=== PATIENT | female | born 1955 | race Caucasian/White ===

== ENCOUNTER 2017-04-11 10:26 | Day surgery (SDC) | payer OTHER ==
[2017-04-11] MEDS ORDERED: NS 1,000 ML IV ONE (10:35)
[2017-04-11] MEDS ORDERED: FAMOTIDINE 20 MG TAB PO ONE (10:35)
[2017-04-11] MEDS ORDERED: diphenhydrAMINE 25 MG CAP PO ONE (10:35)
[2017-04-11] MEDS ORDERED: DIAZEPAM 5 MG TAB PO ONE (10:35)
[2017-04-11] MEDS ORDERED: ASPIRIN EC 325 MG TAB PO ONE (10:35)
--- NOTE | 2017-04-11 11:13 | CPEKG ---
Heart Rate: 75 RR Interval: 800 P-R Interval: 152 QRSD Interval: 82 QT Interval: 372 QTC Interval: 416 P [place]: 73 QRS [place]: -15 T Wave [place]: 29 EKG Severity - ABNORMAL ECG - EKG Impression: SINUS RHYTHM EKG Impression: BORDERLINE LEFT AXIS DEVIATION EKG Impression: BORDERLINE R WAVE PROGRESSION, ANTERIOR LEADS Electronically Signed By: Carlos Arzate 11-Apr-2017 15:44:01
[2017-04-11 11:47] LABS: % IMMATURE GRANULYOCYTES 0.3 % (0.0-1.1); ABSOLUTE IMMATURE GRANULOCYTES 0.02 10^3/uL (0.00-0.10); ADD DIFF? NO; ADD MORPH? NO; ADD SCAN? NO; ATYPICAL LYMPHOCYTE FLAG 10 (0-99); FRAGMENT RBC FLAG 0 (0-99); HEMATOCRIT 42.9 % (38.0-47.0); HEMOGLOBIN 14.8 g/dL (12.6-16.3); LEFT SHIFT FLG 0 (0-99); LIPEMIA HEMOLYSIS FLAG 90 (0-99); MEAN CELL HEMOGLOBIN 33.7 pg (27.9-34.1); MEAN CELL HEMOGLOBIN CONCENTR. 34.5 g/dL (32.4-36.7); MEAN CELL VOLUME 97.7 fL (81.5-99.8); MEAN PLATELET VOLUME 9.4 fL (8.7-11.7); PLATELET CLUMPS FLAG 0 (0-99); PLATELET COUNT 295 10^3/uL (150-400); RED BLOOD CELL COUNT 4.39 10^6/uL (4.18-5.33)
[2017-04-11 11:54] LABS: INR 1.05 (0.83-1.16); PROTIME(PATIENT) 13.6 SEC (12.0-15.0)
[2017-04-11 12:02] LABS: ANION GAP 15 mEq/L (8-16); CALCIUM 10.3 mg/dL (8.5-10.4); CARBON DIOXIDE 23 mEq/l (22-31); CHLORIDE 104 mEq/L (97-110); CHOLESTEROL 194 mg/dL (140-220); CHOLESTEROL/HDL RATIO 2.49 RATIO (1.00-4.44); CREATININE 0.7 mg/dL (0.6-1.0); GLOMERULAR FILTRATION RATE > 60; GLUCOSE 84 mg/dL (70-100); HIGH DENSITY LIPOPROTEIN 78 mg/dL (40-85); LDL/HDL RATIO 1.32 RATIO (1.00-3.22); LOW DENSITY LIPOPROTEIN 103 mg/dL (80-100); MAGNESIUM 2.1 mg/dL (1.6-2.3); NON-HIGH DENSITY LIPOPROTEIN 116 mg/dL (90-129); SODIUM 142 mEq/L (134-144); TRIGLYCERIDE 69 mg/dL (35-135); VERY LOW DENSITY LIPOPROTEINS 13 mg/dL (8-25)
[2017-04-11] MEDS ORDERED: LIDOCAINE 1% 300 MG/30 ML SDV ONE (12:17)
[2017-04-11] MEDS ORDERED: fentaNYL 100 MCG/2 ML INJ ONE (12:17)
[2017-04-11] MEDS ORDERED: IOPAMIDOL (ISOVUE-370) 150 ML BTL IV ONE (12:18)
[2017-04-11] MEDS ORDERED: MIDAZOLAM 2 MG/2 ML VIAL ONE (12:18)
[2017-04-11] MEDS ORDERED: VERAPAMIL 5 MG/2 ML VIAL ONE (12:18)
[2017-04-11] MEDS ORDERED: HEPARIN 10,000 UNIT/10 ML MDV ONE (12:18)
--- NOTE | 2017-04-11 14:48 | ECHO ---
[id number] + + [address] : : [place] [address] : : [phone] + Adult Echocardiographic Report + -----+ :Name: NIKKO CHATTERJEE MStudy Date: 04/11/2017 01:22 PM : : Hospital Admission Number: [id number] Location : [facility]: :: 1955 Gender: Female Height: 64 in : :Age: 61 yrs Race: WH Weight: 127 lb : :Reason For Study: Eval LV function : : BSA: 1.6 meters2 : + -----+ MMode/2D Measurements \T\ Calculations IVSd: 0.62 cm LVIDd: 4.5 cm FS: 45.8 % Ao root diam: LVPWd: 0.81 cm LVIDs: 2.4 cm EDV(Teich): 3.2 cm 92.5 ml LA dimension: ESV(Teich): 3.0 cm 21.0 ml EF(Teich): 77.3 % LVLd ap4: 7.0 cm SV(MOD-sp4): EDV(MOD-sp4): 36.0 ml 54.0 ml LVLs ap4: 5.7 cm ESV(MOD-sp4): 18.0 ml EF(MOD-sp4): 66.7 % Normal Measurement Values: + + :LVIDd (3.5-5.7cm) IVSd (0.6-1.1cm) LVPWd (0.6-1.1cm) Aortic Root (2.0-3.7cm)Left Atrium (1.5-4.0cm): :LV Vol(d) (76-115ml) LV Vol(s) (29-48ml) Ejec Fraction (50-65%)PV Juan (0.6- 1.2m/s) TV Juan (0.4-1.0m/s) : :MV E Juan (0.8-1.0m/s)MV A Juan (0.3-1.0m/s)LVOT Juan (0.7-1.2m/s) Asc Ao Juan ( 0.9-1.8m/s) : + + Doppler Measurements \T\ Calculations MV E max juan: 58.7 cm/sec Ao V2 max: 86.9 cm/sec MV A max juan: 59.2 cm/sec Ao max P.0 mmHg MV E/A: 0.99 Left Ventricle The left ventricle is normal in size. There is normal left ventricular wall thickness. Left ventricular systolic function is normal. Ejection Fraction = 65-70%. No regional wall motion abnormalities noted. Right Ventricle The right ventricle is normal in size and function. Atria The left atrial size is normal. Right atrial size is normal. The interatrial septum is intact with no evidence for an atrial septal defect. Mitral Valve Calcified mitral apparatus. Borderline posterior mitral leaflet prolapse. There is no mitral valve stenosis. There is trace mitral regurgitation. Tricuspid Valve Normal tricuspid valve. There is trace tricuspid regurgitation. Aortic Valve The aortic valve is trileaflet. The aortic valve opens well. Mild Aortic Valve Calcification. There is no aortic stenosis. There is no aortic insufficiency. Pulmonic Valve The pulmonic valve is normal in structure and function. There is no pulmonic valvular regurgitation. Great Vessels The aortic root is normal size. Pericardium/Pleural There is no pericardial effusion. Conclusion A complete two-dimensional transthoracic echocardiogram was performed (2D, M-mode, Doppler and color flow Doppler). Left ventricular systolic function is normal. Ejection Fraction = 65-70%. Normal wall motion. Mild aortic sclerosis and mitral annular calcification. Borderline posterior mitral leaflet prolapse. There is trace tricuspid regurgitation. There is trace mitral regurgitation. Final Reading Physician: Chelsey Menard signed on 04/11/2017 02:47 PM Ordering Physician: Carlos Arzate Performed By: Prerna Ward, REGINE
--- NOTE | 2017-04-11 14:50 | CPIP ---
[f rep st] INVASIVE CARDIAC PROCEDURE DATE OF PROCEDURE: 04/11/2017 PROCEDURE PERFORMED: 1. Left heart catheterization. 2. Left ventriculogram. 3. Selective coronary angiography. 4. TR band arteriotomy. APPROACH: This is a left radial approach. COMPLICATIONS: None INDICATIONS/APPROPRIATE USE CRITERIA: The patient has crescendo angina with chest pressure and tightness occurring both at rest and with minimal exertion consistent with CCS class 4 symptoms of angina. A stress test was not performed secondary to the unstable nature of the patient's symptoms and the patient's strong family history and genetic risk for premature cardiovascular illness. DESCRIPTION OF PROCEDURE: After informed consent was obtained and n.p.o. status was confirmed, the patient received conscious sedation with Versed and fentanyl. A plethysmography trace-assisted Riaz test was performed, documenting dual arterial supply to the left hand and index finger with a strong pulsatile trace with the radial artery occluded with manual pressure. Approximately 3 cc of 1% lidocaine was utilized for local anesthesia. A 5- Latvian sheath was placed using modified Seldinger technique. The patient then underwent the previously mentioned diagnostic procedures with use of JR4 and L4 curved coronary catheters, as well as a 5-Latvian pigtail catheter. Standard wire exchange technique was utilized for all catheter exchanges. The right coronary artery is dominant, giving rise to a posterior descending as well as a posterolateral ventricular branch. No flow-limiting obstruction, dissection, or thrombus is identified. There is no evidence of luminal irregularity to suggest an underlying atherosclerosis. The left main coronary is approximately 5 mm in size. It trifurcates into a ramus intermedius, circumflex, and LAD system. The LAD is approximately 4 mm in size and gives rise to appropriate diagonal branches. The circumflex vessel is 2.5 mm in size and free of flow-limiting disease. The ramus intermedius vessel or high obtuse marginal vessel is likewise free of flow-limiting obstruction. In the HERNANDEZ caudal view, it appears that blood vessels arise from the region of one of the diagonal branches, coursing toward the upper portion of the left atrial appendage or the pulmonary artery, which is of unclear significance but has a tortuous appearance that may be consistent with neovascularization. Vessels are not usually seen in that location. In regard to identification of flow-limiting coronary disease, there is no evidence of obstructive disease in the left or right coronary system. The patient underwent left heart catheterization with a pigtail catheter. The LVEDP was normal at 12 mmHg. The patient underwent left ventriculogram in the HERNANDEZ projection, demonstrating preserved and hypercontractile left ventricular systolic function. Ejection fraction was greater than 75%. There was no evidence of mitral regurgitation or aortic stenosis upon pullback across the aortic valve. With catheter insertion in the left heart, there was easily inducible and recurrent nonsustained narrow complex tachycardia, which is of unclear significance and may represent fascicular VT versus some other form of nonsustained tachycardia. The visualized portion of the thoracic aorta reveals 3 sinuses of Valsalva, which is most consistent with a trileaflet aortic valve. There is no evidence of shan aneurysm or dissection. FINAL IMPRESSION: No evidence of viejas vessel coronary artery disease is identified on the basis of this study. A calcium score of 1 within the coronary circulation is consistent with atherosclerosis, and the patient should be treated with risk factor modification to continue to prevent the formation of atherosclerosis. The patient does have a strange vessel arising from what appears to be a high lateral branch, which is either from the ramus intermedius branch or a diagonal branch, coursing upward toward the region of the left atrial appendage or pulmonary artery. On cine fluoroscopy, there is an extra soft tissue density near the aortopulmonary window, which is of unclear significance. The patient would benefit from an echocardiogram to evaluate this region of her heart and vasculature, and that will be performed today. The patient should be considered for a longer period of monitoring to rule out a nonsustained ventricular or supraventricular tachycardia as a cause for her clinical symptoms. /[id number]/MODL and correction [id number], 04/11/17, 8[address] [facility]ITAL[facility]
== END 2017-04-11 17:28 | disposition home or self-care (01) ==
LOC: FCATH 10:26
PROVIDERS: ATTEND Internal Medicine Cardiovascular Disease
PROC: 4A023N7 Measurement of Cardiac Sampling and Pressure, Left Heart, Percutaneous Approach (ICD-10-PCS; principal; 2017-04-11)
DX: I20.0 Unstable angina (principal); R94.31 Abnormal electrocardiogram [ECG] [EKG]; R07.89 Other chest pain; E78.5 Hyperlipidemia, unspecified; I49.9 Cardiac arrhythmia, unspecified; Z82.49 Family history of ischemic heart disease and other diseases of the circulatory system
CPT/HCPCS: J1644; J2250; J3010; Q9967

== ENCOUNTER 2017-05-29 11:55 | Observation (INO) | payer OTHER ==
[2017-05-29] MEDS ORDERED: NS 1,000 ML IV ONE (12:04)
--- NOTE | 2017-05-29 12:30 | PDHPUP ---
History & Physical Update H&P update statement: This history and physical update is based on an assessment of the patient which was completed after admission or registration (within 24 hours), but prior to the surgery/procedure. H&P update: H&P reviewed & patient examined, no change in patient's condition since H&P completed
--- NOTE | 2017-05-29 12:36 | CPEKG ---
Heart Rate: 77 RR Interval: 779 P-R Interval: 148 QRSD Interval: 82 QT Interval: 352 QTC Interval: 399 P [place]: 69 QRS [place]: -6 T Wave [place]: -3 EKG Severity - BORDERLINE ECG - EKG Impression: SINUS RHYTHM EKG Impression: BORDERLINE R WAVE PROGRESSION, ANTERIOR LEADS EKG Impression: BORDERLINE T ABNORMALITIES, INFERIOR LEADS Electronically Signed By: Mike Nation 02-Jun-2017 08:33:20
[2017-05-29 13:09] LABS: % IMMATURE GRANULYOCYTES 0.5 % (0.0-1.1); ABSOLUTE IMMATURE GRANULOCYTES 0.04 10^3/uL (0.00-0.10); ADD DIFF? NO; ADD MORPH? NO; ADD SCAN? NO; ATYPICAL LYMPHOCYTE FLAG 0 (0-99); FRAGMENT RBC FLAG 0 (0-99); HEMATOCRIT 40.4 % (38.0-47.0); HEMOGLOBIN 13.8 g/dL (12.6-16.3); LEFT SHIFT FLG 0 (0-99); LIPEMIA HEMOLYSIS FLAG 90 (0-99); MEAN CELL HEMOGLOBIN 33.7 pg (27.9-34.1); MEAN CELL HEMOGLOBIN CONCENTR. 34.2 g/dL (32.4-36.7); MEAN CELL VOLUME 98.5 fL (81.5-99.8); MEAN PLATELET VOLUME 9.3 fL (8.7-11.7); PLATELET CLUMPS FLAG 10 (0-99); PLATELET COUNT 322 10^3/uL (150-400)
[2017-05-29 13:13] LABS: INR 1.08 (0.83-1.16); PROTIME(PATIENT) 13.9 SEC (12.0-15.0)
[2017-05-29 13:26] LABS: ANION GAP 11 mEq/L (8-16); CALCIUM 10.4 mg/dL (8.5-10.4); CARBON DIOXIDE 23 mEq/l (22-31); CHLORIDE 106 mEq/L (97-110); CREATININE 0.7 mg/dL (0.6-1.0); GLOMERULAR FILTRATION RATE > 60; GLUCOSE 87 mg/dL (70-100); POTASSIUM 4.1 mEq/L (3.5-5.2); SODIUM 140 mEq/L (134-144)
[2017-05-29] MEDS ORDERED: LIDOCAINE 1% 300 MG/30 ML SDV ONE (14:14)
[2017-05-29] MEDS ORDERED: BUPIVACAINE 0.5% 30 ML SDV ONE (14:14)
[2017-05-29] MEDS ORDERED: ISOPROTERENOL HCL/D5W 0.2 MG/50 ML BAG IV ONE (14:14)
[2017-05-29] MEDS ORDERED: HEPARIN 10,000 UNIT/10 ML MDV ONE (14:14)
--- NOTE | 2017-05-29 14:23 | PDANEPAE ---
ANE Past Medical History - Pulmonary History Hx Sleep Apnea: No ANE Review of Systems Review of Systems: ANE Patient History - Allergies Allergies/Adverse Reactions: No Known Allergies Allergy (Verified 05/27/17 17:05) - Home Medications Home Medications: Acetaminophen [Tylenol ES 500 mg (*)] 500 mg PO Q6 PRN 05/27/17 [Last Taken 03/04 12:00] Atorvastatin Calcium [Lipitor 10 mg (*)] 10 mg PO HS 05/27/17 [Last Taken 22:00] Estradiol [Estradiol 1 MG (*)] 1 mg PO HS 05/27/17 [Last Taken 05/28/17 22:00] Ibuprofen [Motrin (*)] 200 - 600 mg PO DAILY PRN 05/27/17 [Last Taken 05/26/17 21:00] Multivitamins [Multivitamin (*)] 1 each PO DAILY 05/27/17 [Last Taken Unknown] medroxyPROGESTERone [Provera 2.5 mg (*)] 2.5 mg PO HS 05/27/17 [Last Taken 05/28 22:00] - Smoking Hx Smoking Status: Never smoked ANE Labs/Vital Signs - Labs Result Diagrams: 05/29/17 12:45 05/29/17 12:45 - Vital Signs Blood Pressure: 144/87 Respiratory Rate: 24 O2 Sat (%): 97 Height: 162.56 cm Weight: 57.4 kg ANE Physical Exam - Airway Neck exam: FROM Mallampati Score: Class 1 Mouth exam: normal dental/mouth exam - Pulmonary Pulmonary: no respiratory distress - Cardiovascular Cardiovascular: regular rate and rhythym - ASA Status ASA Status: II ANE Anesthesia Plan Anesthesia Plan: general endotracheal anesthesia
[2017-05-29] MEDS ORDERED: MIDAZOLAM 2 MG/2 ML VIAL ONE (14:24)
[2017-05-29] MEDS ORDERED: LIDOCAINE 2% 100 MG/5 ML SYR ONE (14:24)
[2017-05-29] MEDS ORDERED: ROCURONIUM 100 MG/10 ML VIAL ONE (14:24)
[2017-05-29] MEDS ORDERED: fentaNYL 100 MCG/2 ML INJ ONE (14:24)
[2017-05-29] MEDS ORDERED: PROPOFOL/EMULSION 500 MG/50 ML BOTTLE IV ONE (14:24)
[2017-05-29] MEDS ORDERED: PROPOFOL 200 MG/20 ML VIAL ONE (16:33)
[2017-05-29] MEDS ORDERED: ONDANSETRON 4 MG/2 ML VIAL IVP PRN ×2 (17:10→17:19)
[2017-05-29] MEDS ORDERED: ALBUTEROL 3 ML DEYVIAL IH PRN (17:19)
[2017-05-29] MEDS ORDERED: fentaNYL 100 MCG/2 ML INJ IVP PRN (17:19)
[2017-05-29] MEDS ORDERED: MEPERIDINE 25 MG/ML SYR IVP PRN (17:19)
[2017-05-29] MEDS ORDERED: NALOXONE HCL 0.4 MG/ML INJ IVP PRN (17:19)
--- NOTE | 2017-05-29 17:19 | POSTANESTH ---
Post Anesthetic Evaluation Cardiovascular Status: Similar to Pre-Op Cond Respiratory Status: Similar to Pre-op Cond. Level of Consciousness/Mental Status: Mildly Sleepy, Arousable Pain Control: Adequate, Prn Tx Ordered Nausea/Vomiting Control: Adequate, Prn Tx Ordered Complications Possibly Related to Anesthesia: None Noted
[2017-05-29] MEDS: ACETAMINOPHEN 325 MG TAB PO PRN (20:54)
[2017-05-29] MEDS ORDERED: ESTRADIOL 1 MG TAB PO SCH (21:00)
[2017-05-29] MEDS ORDERED: ATORVASTATIN CALCIUM 10 MG TAB PO SCH (21:00)
[2017-05-30] MEDS: ACETAMINOPHEN 325 MG TAB PO PRN ×2 (03:12→08:04)
[2017-05-30 05:04] LABS: % IMMATURE GRANULYOCYTES 0.2 % (0.0-1.1); ABSOLUTE IMMATURE GRANULOCYTES 0.02 10^3/uL (0.00-0.10); ADD DIFF? NO; ADD MORPH? NO; ADD SCAN? NO; ATYPICAL LYMPHOCYTE FLAG 0 (0-99); FRAGMENT RBC FLAG 10 (0-99); HEMATOCRIT 35.3 % (38.0-47.0); HEMOGLOBIN 12.2 g/dL (12.6-16.3); LEFT SHIFT FLG 0 (0-99); LIPEMIA HEMOLYSIS FLAG 90 (0-99); MEAN CELL HEMOGLOBIN 33.8 pg (27.9-34.1); MEAN CELL HEMOGLOBIN CONCENTR. 34.6 g/dL (32.4-36.7); MEAN CELL VOLUME 97.8 fL (81.5-99.8); MEAN PLATELET VOLUME 9.7 fL (8.7-11.7); PLATELET CLUMPS FLAG 10 (0-99); PLATELET COUNT 293 10^3/uL (150-400); RED BLOOD CELL COUNT 3.61 10^6/uL (4.18-5.33)
[2017-05-30 05:12] LABS: INR 1.15 (0.83-1.16); PROTIME(PATIENT) 14.6 SEC (12.0-15.0)
[2017-05-30 05:23] LABS: ANION GAP 9 mEq/L (8-16); CALCIUM 9.7 mg/dL (8.5-10.4); CARBON DIOXIDE 21 mEq/l (22-31); CHLORIDE 106 mEq/L (97-110); CREATININE 0.7 mg/dL (0.6-1.0); GLOMERULAR FILTRATION RATE > 60; GLUCOSE 86 mg/dL (70-100); POTASSIUM 3.9 mEq/L (3.5-5.2); SODIUM 136 mEq/L (134-144)
[2017-05-30 05:32] LABS: CREATINE KINASE-MB FRACTION 0.72 ng/mL (0.00-3.19); TROPONIN I 0.032 ng/mL (0.000-0.034)
[2017-05-30 07:39] VITALS: BP 124/80; PULSE 75; RESP 13; TEMP 98.7; O2SAT 94
--- NOTE | 2017-05-30 08:54 | CPEKG ---
Heart Rate: 77 RR Interval: 779 P-R Interval: 128 QRSD Interval: 86 QT Interval: 368 QTC Interval: 417 P [place]: 63 QRS [place]: 13 T Wave [place]: 20 EKG Severity - NORMAL ECG - EKG Impression: SINUS RHYTHM Electronically Signed By: Mike Nation 02-Jun-2017 08:33:27
[2017-05-30] MEDS ORDERED: MULTIVITAMINS 1 EACH TAB PO SCH (09:00)
[2017-05-30] MEDS ORDERED: ASPIRIN EC 81 MG TAB PO SCH (09:00)
--- NOTE | 2017-05-30 10:59 | ECHO ---
[email or web address] [address] [address] Main: [phone] Fax: Transthoracic Echocardiogram Name: NIKKO CHATTERJEE MR#: [id number] Study Date: 05/30/2017 Study Time: 09:01 AM Date of : 1955 Age: 61 year(s) Height: 162.6 cm (64 in.) Weight: 57.15 kg (126 lb.) BSA: 1.61 m2 Gender: Female Examination: Echo Indication: F/U post EP study Image Quality: Contrast: Requested by: Ashleigh Perez BP: 124 mmHg/80 mmHg Heart Rate: Rhythm: Indication: F/U post EP study Procedure Staff X Ray Tech: Prerna Wells Physician: Roberth Poole Requesting Provider: Conclusions: Normal study Measurements: Chambers Valvular Assessment AV/MV Valvular Assessment TV/PV Normal Normal Normal Name Value Range Name Value Range Name Value Range Ao Zoila (MM): 3.1 cm (2.2 cm-3.7 AV Vmax: 1.18 m/s (1 m/s-1.7 cm) m/s) IVSd (2D): 0.6 cm (0.6 cm-1.1 AV maxP mmHg ( - ) cm) MV E Vmax: 0.59 m/s ( - ) LVDd (2D): 4.3 cm (3.9 cm-5.3 MV A Vmax: 0.71 m/s ( - ) cm) MV E/A: 0.83 ( - ) LVDs (2D): 2.7 cm (2.1 cm-4 cm) LVPWd (2D): 0.7 cm ( - ) LVEF (MOD4): 75 % (>=55 %) Continued Measurements: Chambers Valvular Assessment AV/MV Name Value Name Value LADs: 2.7 cm MV E/E' Septal: 6.30 LADs Lon.6 cm MV E/E' Lateral: 6.80 LA Area: 13.7 cm2 Findings: Left Ventricle: Normal size left ventricle. Right Ventricle: Patient: NIKKO CHATTERJEE Study Date: 05/30/2017 Page 1 of 2 09:01 AM Normal size right ventricle. Normal RV function. Left Atrium: The left atrium is normal in size. Right Atrium: The right atrium is normal in size. Mitral Valve: The mitral valve is normal in appearance. Trivial mitral valve regurgitation. Aortic Valve: The aortic valve is tri-leaflet and functions normally. There is no aortic valve regurgitation. Tricuspid Valve: The tricuspid valve appears normal. Mild tricuspid regurgitation is present. Pericardium: No pericardial effusion. (No Signature Object) Patient: NIKKO CHATTERJEE Study Date: 05/30/2017 Page 2 of 2 09:01 AM [id number]
--- NOTE | 2017-05-30 14:01 | GDS ---
[f rep st] DISCHARGE SUMMARY DISCHARGE DIAGNOSES: 1. Syncope with supraventricular tachycardia seen up to 240 beats per minute on CardioNet monitoring . 2. Recent episode of syncope. 3. History of recent chest pain. 4. Dyslipidemia. PROCEDURES: 1. 05/29/2017, EP study. 2. 05/30/2017, echocardiogram showing normal study. BRIEF HISTORY: Please see dictated H and P from our office for complete details. In brief, the jacklyn ent is a 61-year-old female with a past medical history of dyslipidemia, coronary artery calcium scor e of 1, who had a recent episode while at [employer]. She had workup at [facility]. In followup, she was seen by Dr. Arzate and proceeded to cardiac catheter ization. During cardiac cath, she had a narrow nonsustained tachycardia, and was discharged with a 1 4-day CardioNet monitor. She had episodes of SVT up to 240 beats per minute. Additionally, she had been noting some episodes of chest pain. She proceeded to EP study, and there was no inducible AVNRT or other sustained atrial arrhythmias. She is being discharged to home with routine followup. PHYSICAL EXAM: VITAL SIGNS: On day of discharge, blood pressure 124/80, heart rate 75, respirations are 18, O2 saturation 94% on room air, temp of 98.7 degrees Fahrenheit. GENERAL: She is a pleasant female in no apparent distress. EYES: PERRL. HEART: Regular rate and rhythm. LUNGS: Clear. : Right groin site with some minimum ecchymosis without bruit. EXTREMITIES: There are 2+ PT and DP pulses bilaterally. LABORATORY DATA: CBC on day of discharge: WBC 10.48, hemoglobin 12.2, hematocrit 35.3, platelet cou nt of 293, BMP with sodium 136, potassium 3.9, chloride 106, CO2 21, BUN 12, creatinine 0.7, glucose 86, troponin 0.032. RESULTS PENDING: None. DIET: Per previous. ACTIVITY: Groin precautions were reviewed. DISCHARGE MEDICATIONS: Please see med reconciliation. She is being discharged on all her home medic ations without any changes. This includes Provera, multivitamin, ibuprofen, estradiol, atorvastatin, and Tylenol. DISCHARGE INSTRUCTIONS: Follow up with Dr. Mayo in 3 weeks' time. /[id number]/MODL
--- NOTE | 2017-05-30 14:41 | ASDISCHSUM ---
Discharge Information Plan Status:Home with No Needs Medically Cleared to Leave:05/30/2017 Discharge Date:05/30/2017 11:32 AM CM D/C Disposition: ADT D/C Disposition:Home, Routine, Self-Care Projected Discharge Date:05/30/2017 12:00 AM Transportation at D/C: Discharge Delay Reason: Follow-Up Date:05/30/2017 12:00 AM Discharge Slot: Final Diagnosis: Placement Information Patient Contact Information Contact Name:MARJORIE Relationship: Address:[address] [place] City:[place] Alternate Phone: [facility]/Zip Code:[place] [address] Email: Financial Information Financial Class:HMO and PPO Plans Primary Plan Desc:MARGARITA ROSADO PPO [employer] Primary Plan Number:[id number] Secondary Plan Desc: Secondary Plan Number: Assessment Information Intervention Information
--- NOTE | 2017-05-31 08:47 | EPPROC ---
Electrophysiology Procedure Note: Procedures performed: 1. Fluoroscopy 2. EP evaluation with RA/RV/LA pace/record, with arrhythmia induction 3. EP evaluation with RA/RV pace record, insert/reposition catheter, with arrhythmia induction 4. Programmed stimulation + pacing after IV drug 3D mapping INDICATION: This is a 61 yr old with an episode of syncope. [place] had nausea following it. The pt then had a monitor placed and was noted to have rapid short burst of narrow complex tachycardia at 240bpm. Hence it was decided to eval for possibility of SVT as a cause syncope and hence EP study was undertaken. PROCEDURE: Catheters & Anesthesia: The patient arrived in the Electrophysiology Laboratory in the fasting state. The right clavicular region, right groin, & left groin area were prepped & draped in the usual sterile manner. Moderate sedation was administered.. Appropriate non-invasive blood pressure, pulse oximetry & end-tidal CO2 monitoring was established. All catheters were placed percutaneously using the modified Seldinger technique , and advanced into position under fluoroscopic guidance. One #6 decapolar catheter was placed in the CS via RFV. CRD2 catheter was placed in the His position via RFV. Arterial line was placed in the RFA. Programmed stimulation was performed from the right atrium, right ventricle and coronary sinus (left atrium). Parahisian pacing demonstrated constant H-A interval with changing V-A intervals and stimulus-A intervals during capture and loss of capture of proximal RBB proving retrograde conduction over AV node. No evidence of dual AV maulik physiology. With burst pacing in the atria no SVT induced. SHort burst of AT induced with no drop in the BP. The AT was at 160bpm. 3D mapping was attempted with pentaray catheter and the AT was short lasting and would degenerate into AF easily. Hence mapping was difficult. However, it appeared to have earliest signal in the CS os. Also, the AT was of varying CL and easily degenerated into AF. We could not sustain AT even with Isuprel. Hence it was deemed that the likely etiology of narrow complex tachycardia was short lasting AT/ AF. Cause of syncope was non-arrhythmic considering no drop in the BP. Ventricular programmed stimulation was performed using standard protocol Ventricular burst pacing and long/short sequence pacing was also performed. No VT was induced. The catheters were removed. The patient was transferred to the cardiovascular holding area in stable condition. Vascular access sheaths were removed in the holding area. There were no apparent complications. Results: Short burst of AT induced, lasting 8 beats at a time with no drop in BP Easy degeneration into AF No drop in BP with any of these arrhythmia. 3 D mapping proved that on the right side, AT originated in the CS os ?LA origin No VT inducible. CONCLUSIONS 1. Normal sinus and AV node function. 2. No evidence of accessory AV pathway presence. 4. No apparent complications. Patient Problems: Problems Problem Status Onset SVT (supraventricular tachycardia) Acute
== END 2017-05-30 11:32 | disposition home or self-care (01) ==
LOC: FCATH 11:55 → F2W 12:07
PROVIDERS: ADMIT Internal Medicine Cardiovascular Disease; ATTEND Internal Medicine Cardiovascular Disease
PROC: 4A023FZ Measurement of Cardiac Rhythm, Percutaneous Approach (ICD-10-PCS; principal; 2017-05-29)
PROC: 5A1213Z Performance of Cardiac Pacing, Intermittent (ICD-10-PCS; principal; 2017-05-29)
PROC: 02K83ZZ Map Conduction Mechanism, Percutaneous Approach (ICD-10-PCS; principal; 2017-05-29)
DX: R55 Syncope and collapse (principal); I47.1 Supraventricular tachycardia; R07.89 Other chest pain; E78.5 Hyperlipidemia, unspecified
CPT/HCPCS: 93005; 93306; 93613; 93620; 93621; 93623; C1732; G0378; C1730; J1644; J2001; J2250; J2704; J3010

== ENCOUNTER → 2017-12-02 | Outpatient (CLI) | payer OTHER | LOC: FIMAGING 10:25 | PROVIDERS: ATTEND Internal Medicine | DX: M71.21 Synovial cyst of popliteal space [Baker], right knee (principal) ==

== ENCOUNTER 2018-12-18 20:39 | Emergency (ER) | payer OTHER ==
--- NOTE | 2018-12-18 21:18 | EDPHY ---
H & P Stated Complaint: RLQ pain @1730, N/V Time Seen by Provider: 12/18/18 21:17 HPI/ROS: HPI: This is a 63-year-old female who presents with Chief Complaint: right lower quadrant pain, nausea, vomiting Location: Right lower quadrant Quality: Sharp, cramp Pain Duration: Started around 5:30 p.m., approximately 4 hr prior to arrival Signs and Symptoms: no fever, + nausea, + vomiting, no hematemesis, no blood in stool, no abdominal bloating, no diarrhea, no back pain, no urinary symptoms, no vaginal bleeding/discharge, no indigestion, no chest pain, no shortness of breath Timing: Acute, constant Severity: 04/28 Context: Patient has a history of hyperlipidemia, coronary artery disease, presents with sudden onset of bilateral super pubic pain that started around 5: 30 p.m. And then quickly moved to the right lower quadrant and became sharp and cramping in nature. She reports that she feels nauseous and vomited 1 time her stomach contents prior to arrival. She denies any fever, diarrhea, back pain , urinary symptoms. Went to the urgent care and they sent her to the emergency room to evaluate for appendicitis. Patient is postmenopausal and takes hormone replacement therapy. No urinary frequency, no urinary hesitancy, no blood in urine. Ate dinner around 6:00 p.m. Had a bowel movement around 6:30 p.m.. Has bowel movements every other day. Modifying Factors: None Comment: ROS: A comprehensive 10 system review of systems is otherwise negative aside from elements mentioned in the history of present illness. MEDICAL/SURGICAL/SOCIAL HISTORY: Medical history: Hyperlipidemia, coronary artery disease Surgical history: Heart cath 04/10/2017 Social history: , nonsmoker. Family history noncontributory. CONSTITUTIONAL: Extremely well-appearing, physically fit adult white female, awake and alert, no obvious distress HEENT: Atraumatic and normocephalic, PERRL, EOMI. Nares patent; no rhinorrhea; no nasal mucosal edema. Tympanic membranes clear. Oropharynx clear, no exudate and moist pink mucosa. Airway patent. No lymphadenopathy. No meningismus. Cardiovascular: Normal S1/S2, regular rate, regular rhythm, without murmur rub or gallop. PULMONARY/CHEST: Symmetrical and nontender. Clear to auscultation bilaterally. Good air movement. No accessory muscle usage. ABDOMEN: Soft, nondistended, moderate right lower quadrant tenderness, no rebound, no guarding, no peritoneal signs, no masses or organomegaly. No CVAT. EXTREMITIES: 2/2 pulses, strength 5/5, no deformities, no clubbing, no cyanosis or edema. NEUROLOGICAL: no focal neuro deficits. GCS 15. SKIN: Warm and dry, no erythema. no rash. Good capillary refill. Source: Patient Exam Limitations: No limitations - Personal History Current Tetanus/Diphtheria Vaccine: Yes - Medical/Surgical History Hx Asthma: No Hx Chronic Respiratory Disease: No Hx Diabetes: No Hx Cardiac Disease: No Hx Renal Disease: No Hx Cirrhosis: No Hx Alcoholism: No Hx HIV/AIDS: No Hx Splenectomy or Spleen Trauma: No Other PMH: Heart cath 04/10/2017, high cholesterol, - Social History Smoking Status: Never smoked Constitutional: Initial Vital Signs Temperature (C) 36.6 C 12/18/18 20:45 Heart Rate 85 12/18/18 20:45 Respiratory Rate 18 12/18/18 20:45 Blood Pressure 169/110 H 12/18/18 20:45 O2 Sat (%) 96 12/18/18 20:45 O2 Delivery Mode Room Air Allergies/Adverse Reactions: No Known Allergies Allergy (Verified 12/18/18 20:47) Home Medications: Medication Instructions Recorded Acetaminophen [Tylenol ES 500 mg 500 mg PO Q6 PRN 05/27/17 (*)] Estradiol [Estradiol 1 MG (*)] 1 mg PO HS 05/27/17 Ibuprofen [Motrin (*)] 200 - 600 mg PO DAILY PRN 05/27/17 Multivitamins [Multivitamin (*)] 1 each PO DAILY 05/27/17 medroxyPROGESTERone [Provera 2.5 2.5 mg PO HS 05/27/17 mg (*)] Pravastatin Sodium 12/18/18 Medical Decision Making ED Course/Re-evaluation: Vital signs reviewed and show elevated blood pressure upon arrival likely due to pain. IV access, laboratory studies, urinalysis, abdominal ultrasound ordered Long discussion with patient and she is thin and prefers to start with ultrasound versus CT due to contrast/radiation exposure. Given 2 L normal saline, IV Dilaudid and IV Zofran with adequate relief of pain 2200: Urinalysis shows trace ketones but no signs of infection, no hematuria. 2240: WBC 13K with left shift, no anemia, no platelet dysfunction, no acute kidney injury, no elevated LFTs, no pancreatitis 2243: Reassessed patient who reports complete relief of symptoms. 0010: Ultrasound unable to visualize appendix due to extensive bowel gas. No secondary signs of appendicitis: No free fluid no rebound tenderness. CT abdomen and pelvis scan ordered. 0055: Preliminary report of CT abdomen and pelvis scan shows unremarkable gallbladder, no ductal dilatation, unremarkable pancreas, unremarkable spleen, unremarkable adrenal glands, unremarkable kidneys ureters; significant diffuse bladder wall thickening with adjacent fat stranding, no obstruction, no wall thickening no signs of colitis or acute diverticulitis. Colonic diverticulosis present. Calcified fibroid at the uterine fundus. 0100: Passed p. o. Trial and advised on bowel regimen for abdominal gas pain versus constipation. This patient was seen under the supervision of my secondary supervising physician. I evaluated and cared for this patient with attending. Differential Diagnosis: Abdominal pain including but not limited to appendicitis, cholecystitis, gastritis and urinary tract infection. - Data Points Laboratory Results: Laboratory Results 12/18/18 21:35 12/18/18 21:35 12/18/18 12/18/18 12/18/18 21:45 21:35 21:35 WBC 12.68 10^3/uL H 10^3/uL (3.80-9.50) RBC 4.31 10^6/uL 10^6/uL (4.18-5.33) Hgb 14.3 g/dL g/dL (12.6-16.3) Hct 42.3 % % (38.0-47.0) MCV 98.1 fL fL (81.5-99.8) MCH 33.2 pg pg (27.9-34.1) MCHC 33.8 g/dL g/dL (32.4-36.7) RDW 13.0 % % (11.5-15.2) Plt Count 344 10^3/uL 10^3/uL (150-400) MPV 9.5 fL fL (8.7-11.7) Neut % (Auto) 83.6 % H % (39.3-74.2) Lymph % (Auto) 10.3 % L % (15.0-45.0) Rooks % (Auto) 5.1 % % (4.5-13.0) Eos % (Auto) 0.2 % L % (0.6-7.6) Baso % (Auto) 0.5 % % (0.3-1.7) Nucleat RBC Rel Count 0.0 % % (0.0-0.2) Absolute Neuts (auto) 10.60 10^3/uL H 10^3/uL (1.70-6.50) Absolute Lymphs (auto) 1.30 10^3/uL 10^3/uL (1.00-3.00) Absolute Monos (auto) 0.65 10^3/uL 10^3/uL (0.30-0.80) Absolute Eos (auto) 0.03 10^3/uL 10^3/uL (0.03-0.40) Absolute Basos (auto) 0.06 10^3/uL 10^3/uL (0.02-0.10) Absolute Nucleated RBC 0.00 10^3/uL 10^3/uL (0-0.01) Immature Gran % 0.3 % % (0.0-1.1) Immature Gran # 0.04 10^3/uL 10^3/uL (0.00-0.10) Sodium 136 mEq/L mEq/L (135-145) Potassium 3.8 mEq/L mEq/L (3.5-5.2) Chloride 101 mEq/L mEq/L (97-110) Carbon Dioxide 24 mEq/l mEq/l (22-31) Anion Gap 11 mEq/L mEq/L (6-14) BUN 19 mg/dL mg/dL (7-23) Creatinine 0.8 mg/dL mg/dL (0.6-1.0) Estimated GFR > 60 Glucose 118 mg/dL H mg/dL (70-100) Calcium 10.7 mg/dL H mg/dL (8.5-10.4) Phosphorus 3.7 mg/dL mg/dL (2.5-4.5) Total Bilirubin 1.0 mg/dL mg/dL (0.1-1.4) Conjugated Bilirubin 0.2 mg/dL mg/dL (0.0-0.5) Unconjugated Bilirubin 0.8 mg/dL mg/dL (0.0-1.1) AST 29 IU/L IU/L (14-46) ALT 43 IU/L IU/L (9-52) Alkaline Phosphatase 82 IU/L IU/L (38-126) Total Protein 8.4 g/dL H g/dL (6.3-8.2) Albumin 5.0 g/dL g/dL (3.5-5.0) Lipase 165 IU/L IU/L (23-300) Urine Color YELLOW Urine Appearance HAZY Urine pH 6.0 (5.0-7.5) Ur Specific Bruni 1.021 (1.002-1.030) Urine Protein NEGATIVE (NEGATIVE) Urine Ketones TRACE H (NEGATIVE) Urine Blood NEGATIVE (NEGATIVE) Urine Nitrate NEGATIVE (NEGATIVE) Urine Bilirubin NEGATIVE (NEGATIVE) Urine Urobilinogen NEGATIVE EU EU (0.2-1.0) Ur Leukocyte Esterase NEGATIVE (NEGATIVE) Urine Glucose NEGATIVE (NEGATIVE) Medications Given: Discontinued Medications Hydromorphone HCl (Dilaudid) 0.5 mg IVP EDNOW ONE Stop: 12/18/18 21:22 Last Admin: 12/18/18 21:45 Dose: 0.5 mg Sodium Chloride (Ns) 1,000 mls @ 0 mls/hr IV EDNOW ONE; Wide Open PRN Reason: Protocol Stop: 12/18/18 21:22 Last Admin: 12/18/18 21:42 Dose: 1,000 mls Sodium Chloride (Ns) 1,000 mls @ 0 mls/hr IV EDNOW ONE; Wide Open PRN Reason: Protocol Stop: 12/18/18 21:22 Last Admin: 12/18/18 21:42 Dose: 1,000 mls Ondansetron HCl (Zofran) 4 mg IVP EDNOW ONE Stop: 12/18/18 21:22 Last Admin: 12/18/18 21:43 Dose: 4 mg Departure - Departure Disposition: Home, Routine, Self-Care Clinical Impression: Abdominal gas pain, Abdominal pain in female patient, Constipation by delayed colonic transit, Diverticulosis of colon without diverticulitis Condition: Good Instructions: Simethicone (By mouth), Polyethylene Glycol 3350 (By mouth), Constipation (ED), Gas and Bloating (ED), Abdominal Pain (ED), Diverticulosis ( ED) Additional Instructions: Consume a minimum of 8-10 glasses of water or electrolyte fluid replacement drinks that include Gatorade, Powerade, Pedialyte. Eat a bland diet for the next 48 hours and then slowly advance as tolerated. Take Zofran 1 tab every 4 hours as needed for nausea, vomiting. Take simethicone/Gas-X as needed for abdominal gas pain. Take [id number] MiraLax as needed for constipation. Return to the Emergency Room if symptoms do not resolve in the next 72 hours, you spike a fever > 102 F, or experience intractable abdominal pain/nausea/ vomiting. Referrals: Berto Rahman MD [Primary Care Provider] - 3-4 days, if not improved
[2018-12-18] MEDS ORDERED: NS 1,000 ML IV ONE ×2 (21:21)
[2018-12-18] MEDS ORDERED: HYDROmorphONE/DILAUDID 2 MG/ML INJ IVP ONE (21:21)
[2018-12-18] MEDS ORDERED: ONDANSETRON 4 MG/2 ML VIAL IVP ONE (21:21)
[2018-12-18] MEDS ORDERED: HYDROmorphONE/DILAUDID 1 MG/ML INJ ONE (21:36)
[2018-12-18 21:59] LABS: PLATELET COUNT 344 10^3/uL (150-400)
[2018-12-18] MEDS ORDERED: IOPAMIDOL (ISOVUE-300) 100 ML BTL ONE (23:54)
[2018-12-19 00:18] VITALS: BP 145/91
[2018-12-19] MEDS ORDERED: ONDANSETRON 4MG PREPACK#2 BTL TAKEHOME ONE (01:16)
== END 2018-12-19 01:22 | disposition home or self-care (01) ==
DX: R10.31 Right lower quadrant pain (principal); R14.0 Abdominal distension (gaseous); K59.01 Slow transit constipation; K57.30 Diverticulosis of large intestine without perforation or abscess without bleeding
CPT/HCPCS: 96374; J1170; J2405; Q9967